=== PATIENT | male | born 1985 | race Caucasian/White ===

== ENCOUNTER 2018-08-13 13:14 | Emergency (ER) | payer BC, OTHER ==
[~2018-08-13] VITALS: Ht 172.7 cm; Wt 88.5 kg
[~2018-08-13 13:14] MED LIST: ACETAMINOPHEN-O1 TAB PO; BACTRIM DS 8001 TA1 PO; DAYPRO600 M1 PO; DIAZEPAM5 MG PO; FLEXERIL10 MG PO; MEDROL DOSEPAK4 MG PO; MOTRIN800 MG PO; NAPROSYN500 MG PO; NORCO 325 MG-51 TAB PO; PANTOPRAZOLE SO40 MG PO; PHENERGAN25 M3 PO; SKELAXIN800 MG PO; TIZANIDINE HCL4 MG PO; TRAMADOL HCL50 MG PO; VICODIN 5/500 505 MG PO; VICODIN ES 7501 TAB PO
== END 2018-08-13 14:54 | disposition home or self-care (01) ==
LOC: ED 13:14
DX: S92.355A Nondisplaced fracture of fifth metatarsal bone, left foot, initial encounter for closed fracture (principal); W22.8XXA Striking against or struck by other objects, initial encounter; Y93.89 Activity, other specified; Y92.69 Other specified industrial and construction area as the place of occurrence of the external cause; Y99.0 Civilian activity done for income or pay

== ENCOUNTER → 2020-04-15 | Outpatient (CLI) | payer BC, OTHER | END | disposition home or self-care (01) | LOC: COVID19 09:26 | PROVIDERS: ATTEND Family Medicine | DX: Z20.828 Contact with and (suspected) exposure to other viral communicable diseases (principal) ==

== ENCOUNTER → 2020-05-26 | Outpatient (CLI) | payer BC, OTHER | END | disposition home or self-care (01) | LOC: COVID19 10:02 | PROVIDERS: ATTEND Nurse Practitioner Family | DX: U07.1 COVID-19 (principal) ==

== ENCOUNTER 2021-10-11 22:43 | Emergency (ER) | payer BC, OTHER ==
[~2021-10-11] VITALS: Ht 175.2 cm; Wt 86.2 kg
[2021-10-11] MEDS ORDERED: PENICILLIN VK500 MG PO (23:02)
== END 2021-10-11 23:35 | disposition home or self-care (01) ==
LOC: ED 22:43
DX: K02.9 Dental caries, unspecified (principal)

== ENCOUNTER 2022-11-27 20:48 | Emergency (ER) | payer BC, OTHER ==
[~2022-11-27 20:48] MED LIST changes: +PENICILLIN VK500 MG PO
[2022-11-27] MEDS ORDERED: PENICILLIN VK500 MG PO (23:13)
== END 2022-11-27 23:27 | disposition home or self-care (01) ==
LOC: ED 20:48
DX: K02.9 Dental caries, unspecified (principal); K08.89 Other specified disorders of teeth and supporting structures; Z98.890 Other specified postprocedural states